=== PATIENT | female | born 1950 | race Caucasian/White ===

== ENCOUNTER 2017-05-30 16:37 | Inpatient (IN) | payer MEDICARE ==
[~2017-05-30] VITALS: Ht 154.9 cm; Wt 96.8 kg
[2017-05-30] MEDS ORDERED: ONDANSETRON 4 MG INJ IV STA (16:48)
[2017-05-30] MEDS ORDERED: SOD CHLORIDE 0.9% 500 ML IV STA (16:48)
[2017-05-30] MEDS ORDERED: ASPIRIN 81 MG TAB PO ONE (17:00)
[2017-05-30 17:05] LABS: BASOPHILS % 0.6 % (0.0-2.0); EOSINOPHILS # 0.1 10^3/ul (0.0-0.5); EOSINOPHILS % 1.4 % (0.0-7.0); HEMATOCRIT 42.3 % (37.0-47.0); LYMPHOCYTES # 1.8 10^3/ul (0.8-2.9); LYMPHOCYTES % 24.5 % (15.0-51.0); MEAN CORPUSCULAR HEMOGLOBIN 26.9 pg (29.0-33.0); MEAN CORPUSCULAR HGB CONC 33.1 g/dl (32.0-37.0); MEAN CORPUSCULAR VOLUME 81.2 fl (82.0-101.0); MEAN PLATELET VOLUME 11.6 fl (7.4-10.4); MONOCYTE # 0.4 10^3/ul (0.3-0.9); MONOCYTES % 5.5 % (0.0-11.0); NEUTROPHIL # 4.9 10^3/ul (1.6-7.5); NEUTROPHILS % 67.7 % (39.0-77.0); PLATELET COUNT 189 10^3/UL (140-415); RED BLOOD COUNT 5.21 10^6/ul (4.20-5.40); WHITE BLOOD COUNT 7.2 10^3/ul (4.8-10.8)
--- NOTE | 2017-05-30 17:19 | ERD ---
ER Documentation Chief Complaint Chief Complaint LUQ AP SUDDEN ONSET 45 MIN VENDING [employer]. N/V. MILD SOB NOTED. HPI 66-year-old woman brought in by EMS from home for left-sided chest pain and discomfort beginning earlier today has been nonexertional nonradiating and associated with nausea, complains of shortness of breath. She denies cough, no fevers or chills, no hemoptysis, no vomiting or diarrhea. Patient denies history of MS. She was transported here by EMS without further complications. ROS All systems reviewed and are negative except as per history of present illness. Medications Home Meds Reported Medications [Complete Bariatric] No Conflict Check, 1 CAP PO BID COMPLETE BARIATRIC MULTIVITAMINS MINERAL SUPPLEMENT 05/30/17 Allergies Allergies: Coded Allergies: No Known Allergy (Unverified , 05/30/17) PMhx/Soc Obesity, hypertension, status post gastric bypass FmHx Family History: No diabetes Physical Exam Vitals Vital Signs Date Time Temp Pulse Resp B/P Pulse Ox O2 Delivery O2 Flow Rate FiO2 05/30/17 16:46 98.3 75 20 166/72 98 Physical Exam GENERAL: Well-developed, appears nauseous, moderate discomfort, afebrile HEENT: Moist mucous membranes, pink conjunctiva, no cervical spine tenderness or step-off deformities, no goiter, no jaundice or icterus, extraocular movements intact without pain. No submandibular induration, and no pharyngeal erythema NEURO: Alert and oriented 3, cranial nerves II through XII intact bilaterally, pupils equal round reactive to light, no focal deficits or facial asymmetry, sensation intact distally Strength 5/5 in upper and lower extremities bilaterally CARDIAC: Regular rate and rhythm, no murmurs rubs or gallops LUNGS: Clear bilaterally no wheezing crackles or stridor ABDOMEN: Soft nontender, no guarding, no rigidity, no rebound, no psoas sign no obturator sign. SKIN: Warm and dry to touch, no abrasions, contusions, or hematomas, no lacerations, no ecchymosis, no target lesions, and without ulcers EXTREMITIES: No clubbing cyanosis or edema, calves are bilaterally symmetrical, no Homans sign, no popliteal cord sign. Distal pulses equal and bilateral PSYCH: Normal affect without agitation or irritability Result Diagram: 05/30/17 1650 05/30/17 1650 Results 24 hrs Laboratory Tests Test 05/30/17 16:50 White Blood Count 7.210^3/ul Red Blood Count 5.2110^6/ul Hemoglobin 14.0g/dl Hematocrit 42.3% Mean Corpuscular Volume 81.2fl Mean Corpuscular Hemoglobin 26.9pg Mean Corpuscular Hemoglobin Concent 33.1g/dl Red Cell Distribution Width 13.0% Platelet Count 62000^3/UL Mean Platelet Volume 11.6fl Neutrophils % 67.7% Lymphocytes % 24.5% Monocytes % 5.5% Eosinophils % 1.4% Basophils % 0.6% Nucleated Red Blood Cells % 0.0/100WBC Neutrophils # 4.910^3/ul Lymphocytes # 1.810^3/ul Monocytes # 0.410^3/ul Eosinophils # 0.110^3/ul Basophils # 0.010^3/ul Nucleated Red Blood Cells # 0.010^3/ul Prothrombin Time 11.0Sec Prothrombin Time Ratio 0.9 INR International Normalized Ratio 0.79 Sodium Level 142mmol/L Potassium Level 4.2mmol/L Chloride Level 101mmol/L Carbon Dioxide Level 24mmol/L Anion Gap 21 Blood Urea Nitrogen 18mg/dl Creatinine 0.74mg/dl Glucose Level 151mg/dl Calcium Level 10.6mg/dl Total Bilirubin 0.3mg/dl Direct Bilirubin 0.00mg/dl Indirect Bilirubin 0.3mg/dl Aspartate Amino Transf (AST/SGOT) 21IU/L Alanine Aminotransferase (ALT/SGPT) 26IU/L Alkaline Phosphatase 107IU/L Troponin I < 0.012ng/ml Total Protein 9.1g/dl Albumin 5.0g/dl Globulin 4.10g/dl Albumin/Globulin Ratio 1.21 Lipase 341U/L Current Medications Medications (Trade) Dose Ordered Sig/Vivi Route PRN Reason Start Time Stop Time Status Last Admin Dose Admin Sodium Chloride (NS) 500 ml @ 500 mls/hr Q1H STAT IV 05/30/17 16:48 05/30/17 17:47 DC 05/30/17 17:02 Ondansetron HCl (Zofran Inj) 4 mg ONCE STAT IV 05/30/17 16:48 05/30/17 16:50 DC 05/30/17 17:02 Aspirin (Aspirin) 324 mg ONCE ONCE PO 05/30/17 17:00 05/30/17 17:01 DC 05/30/17 17:02 Metoclopramide HCl (Reglan) 10 mg ONCE ONCE IV 05/30/17 18:00 05/30/17 18:01 DC 05/30/17 18:00 Alprazolam (Xanax) 0.5 mg ONCE ONCE PO 05/30/17 18:00 05/30/17 18:01 DC 05/30/17 18:00 IV Flush (NS 3 ml) 3 ml PER PROTOCOL IV 05/30/17 19:30 Enoxaparin Sodium (Lovenox) 30 mg DAILY SC 05/31/17 09:00 UNV Procedures/MDM IV line was established patient was placed on cardiac cath rn rhythm strip revealed a sinus rhythm at about 70 bpm with upright P and T waves. Patient was afebrile EKG performed, read by me: 64 bpm, normal sinus rhythm, normal axis, no acute ST segment changes, narrow QRS complex, with good R-wave progression in precordial leads. I administered 500 cc normal saline IV 1, aspirin 324 mg p.o. for cardioprotective measures, Zofran [address] scan of the abdomen and pelvis was performed, given the patient's symptoms. There was no acute inflammatory or infectious pathology noted, vascular structures were unremarkable. Please refer radiologist's dictation for full report.IMPRESSION: 1. No acute abnormality or findings to suggest a source of the patient's symptoms. 2. Small hiatal hernia. Postoperative changes related to prior gastric partitioning. 3. Vascular calcifications consistent with atherosclerosis. For continued nausea patient received metoclopramide 10 mg IV 1 and alprazolam 0.5 mg p.o. 1. CBC was normal, electrolytes unremarkable, liver function tests normal, troponin negative. Departure Diagnosis: Primary Impression: Chest pain Chest pain type: unspecified Qualified Code: R07.9 - Chest pain, unspecified type Additional Impression: Intractable vomiting Vomiting type: unspecified Nausea presence: with nausea Qualified Code: R11.2 - Intractable vomiting with nausea, unspecified vomiting type Condition: ARIES Aquino MD May 30, 2017 17:19
[2017-05-30 17:21] LABS: INR 0.79; PT RATIO 0.9
--- NOTE | 2017-05-30 17:24 | RADRPT ---
PROCEDURE: CT abdomen and pelvis without contrast. CLINICAL INDICATION: Abdominal pain. TECHNIQUE: CT of the abdomen and pelvis was performed without contrast. Coronal and sagittal reform atted images were obtained from the axial source images. Images were reviewed on a high-resolution [employer] workstation. The total exam CTDI equals 22.35 mGy and the total exam DLP equals 1202.79 mGy-cm. DICOM images are available. One or more of the following dose reduction techniques were used: - Automated exposure control. - Adjustment of the mA and/or kV according to patient size. - Use of iterative reconstruction technique. COMPARISON: None available. FINDINGS: Visualized lower thorax: The visualized lung bases are clear. The visualized heart is unremarkable. There is a small hiatal hernia. Hepatobiliary system and spleen: The visualized liver is grossly unremarkable. There is no intra or extrahepatic biliary ductal dilatation. The gallbladder is grossly unremarkable. The spleen is amos sly unremarkable. The pancreas is grossly unremarkable. Adrenal glands and genitourinary system: The adrenal glands are grossly unremarkable. There is no n ephrolithiasis or hydronephrosis. The urinary bladder is grossly unremarkable. The uterus and adnex a are grossly unremarkable. Gastrointestinal system: There is no bowel wall thickening or evidence of obstruction. The appendix is not identified, but there is no focal inflammatory process in the right lower quadrant. There is postoperative change related to prior gastric partitioning. Peritoneum, vascular, and lymphatics: There is no free intraperitoneal air or free fluid. There is no mesenteric or retroperitoneal adenopathy. There are atherosclerotic changes of the aorta, which i s nonaneurysmal. Musculoskeletal system and soft tissues: There is moderate to severe multilevel degenerative enthes opathy. There are no concerning osseous lesions. IMPRESSION: 1. No acute abnormality or findings to suggest a source of the patient's symptoms. 2. Small hiatal hernia. Postoperative changes related to prior gastric partitioning. 3. Vascular calcifications consistent with atherosclerosis. RPTAT: HLBP .Otto Gordon MD, MD Date Time Electronically viewed and signed by .Otto Gordon MD, MD on 05/30/2017 17:24 .P/
[2017-05-30 17:26] LABS: ALANINE AMINOTRANSFERASE 26 IU/L (13-69); ALBUMIN/GLOBULIN RATIO 1.21; ALKALINE PHOSPHATASE 107 IU/L (42-121); ANION GAP 21 (8-16); ASPARTATE AMINO TRANSFERASE 21 IU/L (15-46); BILIRUBIN,INDIRECT 0.3 mg/dl (0-1.1); BILIRUBIN,TOTAL 0.3 mg/dl (0.2-1.3); BLOOD UREA NITROGEN 18 mg/dl (7-20); CALCIUM 10.6 mg/dl (8.4-10.2); CARBON DIOXIDE 24 mmol/L (21-31); CHLORIDE 101 mmol/L (97-110); CREATININE 0.74 mg/dl (0.44-1.00); GLUCOSE 151 mg/dl (70-220); POTASSIUM 4.2 mmol/L (3.5-5.1); SODIUM 142 mmol/L (135-144); TOTAL PROTEIN 9.1 g/dl (6.1-8.1)
[2017-05-30 17:37] LABS: TROPONIN-I < 0.012 ng/ml (0.00-0.12)
[2017-05-30] MEDS ORDERED: [UNRECOGNIZED DRUG - OTHER] PO (17:59)
[2017-05-30] MEDS ORDERED: METOCLOPRAMIDE 10 MG INJ IV ONE (18:00)
[2017-05-30] MEDS ORDERED: ALPRAZOLAM 0.25 MG TAB PO ONE (18:00)
--- NOTE | 2017-05-30 19:03 | HP ---
Date/Time of Note Date/Time of Note DATE: 05/30/17 TIME: 18:57 Assessment/Plan VTE Prophylaxis VTE Prophylaxis Intervention: LMWH Assessment/Plan Chief Complaint/Hosp Course 66 yo female with h/o morbid obesity s/p gastric bypass who presents with episode of nausea, vomiting, followed by chest pain CT A/P shows no acute pathology. Possible this was an ACS, though less likely given negative troponin and nonischemic EKG. Will recheck troponin and monitor overnight. TTE is reasonable to perform. Mostly suspect her nausea/vomiting were related to gastric bypass and chest pain was results of vomiting/ esophageal pain. If feels well and studies normal with discharge in the AM Problems: HPI/ROS Admit Date/Time Admit Date/Time Hx of Present Illness 66 yo female with ho obesity s/p gastric bypass, arthritis who presents with episode of nausea/vomiting then [facility] Pateint in [facility] [place] until around 3 pm. Developed fairly acute onset of nausea. She then vomited. Following this began to feel chest pain. Pain persisted in her chest so she came to the ED. Here underwent CT A/P showing no acute pathology. Currently feels better, back to normal, just systemically "weak" she says. Never has had angina or any similar episodes to this before. Gastric bypass was a year ago, has lost > 100 pounds. PMH/Family/Social Past Surgical History Gastric bypass Social History Smoking Status: Never smoker Exam/Review of Systems Vital Signs Vitals Vital Signs Date Time Temp Pulse Resp B/P Pulse Ox O2 Delivery O2 Flow Rate FiO2 05/30/17 16:46 98.3 75 20 166/72 98 Exam Exam Obese female, resting comfortably in NAD, AOx3 RRR, no m/r/g Lungs clear No pain to palpation of chest wall Abdomen soft nt nd Ext warm without edema Labs Result Diagram: 05/30/17 1650 05/30/17 1650 TAYLOR NORMAN MD May 30, 2017 19:03
[2017-05-30] MEDS ORDERED: NACL 0.9% 3 ML SYG IV SCH (19:30)
[2017-05-30 21:24] VITALS: TEMP 97.8
[2017-05-30 22:04] VITALS: PULSE 77
[2017-05-30 22:20] VITALS: Ht 154.9 cm; Wt 96.8 kg
[2017-05-31] VITALS (8 sets, daily range): BP systolic 98–111; BP diastolic 56–59; PULSE 45–69; RESP 18–19
[2017-05-31 07:39] LABS: BASOPHILS % 0.6 % (0.0-2.0); EOSINOPHILS # 0.1 10^3/ul (0.0-0.5); EOSINOPHILS % 1.1 % (0.0-7.0); HEMATOCRIT 34.4 % (37.0-47.0); HEMOGLOBIN 11.1 g/dl (12.0-16.0); LYMPHOCYTES # 1.3 10^3/ul (0.8-2.9); MEAN CORPUSCULAR HEMOGLOBIN 26.8 pg (29.0-33.0); MEAN CORPUSCULAR HGB CONC 32.3 g/dl (32.0-37.0); MEAN CORPUSCULAR VOLUME 83.1 fl (82.0-101.0); MEAN PLATELET VOLUME 11.7 fl (7.4-10.4); MONOCYTE # 0.4 10^3/ul (0.3-0.9); MONOCYTES % 8.2 % (0.0-11.0); NEUTROPHIL # 2.9 10^3/ul (1.6-7.5); NEUTROPHILS % 61.9 % (39.0-77.0); RED BLOOD COUNT 4.14 10^6/ul (4.20-5.40); RED CELL DISTRIBUTION WIDTH 12.7 % (11.5-14.5); WHITE BLOOD COUNT 4.8 10^3/ul (4.8-10.8)
[2017-05-31 07:43] LABS: PLATELET COUNT 135 10^3/UL (140-415); POSITIVE DIFF @See below
[2017-05-31 07:57] LABS: ALBUMIN 3.5 g/dl (3.3-4.9); ALBUMIN/GLOBULIN RATIO 1.16; BILIRUBIN,INDIRECT 0.5 mg/dl (0-1.1); BILIRUBIN,TOTAL 0.5 mg/dl (0.2-1.3); CALCIUM 9.1 mg/dl (8.4-10.2); CREATININE 0.63 mg/dl (0.44-1.00); POTASSIUM 4.2 mmol/L (3.5-5.1); TOTAL PROTEIN 6.5 g/dl (6.1-8.1)
[2017-05-31] MEDS ORDERED: ENOXAPARIN 30 MG/0.3 ML SYG SC SCH (09:00)
--- NOTE | 2017-05-31 13:58 | PDOCDIS ---
Discharge Instructions DIAGNOSIS Discharge Diagnosis Nausea CONDITION Patient Condition: Good FOLLOW UP/APPOINTMENTS Follow-up Plan Follow up with your primary doctor for further medical care Return to the hospital if you have any concerning symptoms TAYLOR NORMAN MD May 31, 2017 13:58
--- NOTE | 2017-05-31 14:40 | DS ---
Date/Time of Note Date/Time of Note DATE: 05/31/17 TIME: 14:38 Discharge Summary Admission/Discharge Info Admit Date/Time May 30, 2017 at 18:44 Discharge Date/Time Discharge Diagnosis Nausea Patient Condition: Fair Hx of Present Illness 66 yo female with ho obesity s/p gastric bypass, arthritis who presents with episode of nausea/vomiting then CP Pateint in [facility] [place] until around 3 pm. Developed fairly acute onset of nausea. She then vomited. Following this began to feel chest pain. Pain persisted in her chest so she came to the ED. Here underwent CT A/P showing no acute pathology. Currently feels better, back to normal, just systemically "weak" she says. Never has had angina or any similar episodes to this before. Gastric bypass was a year ago, has lost > 100 pounds. Hospital Course 66 yo female with h/o morbid obesity s/p gastric bypass who presents with episode of nausea, vomiting, followed by chest pain Patient monitored overnigth and all symptoms resolved. Serial troponins were negative. She requested discharge home without further workup. She was encouraged to see her PMD for consideration of stress testing. Home Meds Reported Medications [Complete Bariatric] No Conflict Check, 1 CAP PO BID COMPLETE BARIATRIC MULTIVITAMINS MINERAL SUPPLEMENT 05/30/17 Follow-up Plan Follow up with your primary doctor for further medical care Return to the hospital if you have any concerning symptoms Primary Care Provider Not On Staff Doctor Pending Labs Laboratory Tests Test 05/30/17 16:50 05/30/17 19:54 05/31/17 01:36 05/31/17 07:01 White Blood Count 7.210^3/ul (4.8-10.8) 4.810^3/ul (4.8-10.8) Red Blood Count 5.2110^6/ul (4.20-5.40) 4.1410^6/ul (4.20-5.40) Hemoglobin 14.0g/dl (12.0-16.0) 11.1g/dl (12.0-16.0) Hematocrit 42.3% (37.0-47.0) 34.4% (37.0-47.0) Mean Corpuscular Volume 81.2fl (82.0-101.0) 83.1fl (82.0-101.0) Mean Corpuscular Hemoglobin 26.9pg (29.0-33.0) 26.8pg (29.0-33.0) Mean Corpuscular Hemoglobin Concent 33.1g/dl (32.0-37.0) 32.3g/dl (32.0-37.0) Red Cell Distribution Width 13.0% (11.5-14.5) 12.7% (11.5-14.5) Platelet Count 73645^3/UL (140-415) 28886^3/UL (140-415) Mean Platelet Volume 11.6fl (7.4-10.4) 11.7fl (7.4-10.4) Neutrophils % 67.7% (39.0-77.0) 61.9% (39.0-77.0) Lymphocytes % 24.5% (15.0-51.0) 28.0% (15.0-51.0) Monocytes % 5.5% (0.0-11.0) 8.2% (0.0-11.0) Eosinophils % 1.4% (0.0-7.0) 1.1% (0.0-7.0) Basophils % 0.6% (0.0-2.0) 0.6% (0.0-2.0) Nucleated Red Blood Cells % 0.0/100WBC (0.0-0.0) 0.0/100WBC (0.0-0.0) Neutrophils # 4.910^3/ul (1.6-7.5) 2.910^3/ul (1.6-7.5) Lymphocytes # 1.810^3/ul (0.8-2.9) 1.310^3/ul (0.8-2.9) Monocytes # 0.410^3/ul (0.3-0.9) 0.410^3/ul (0.3-0.9) Eosinophils # 0.110^3/ul (0.0-0.5) 0.110^3/ul (0.0-0.5) Basophils # 0.010^3/ul (0.0-0.1) 0.010^3/ul (0.0-0.1) Nucleated Red Blood Cells # 0.010^3/ul (0.0-0.0) 0.010^3/ul (0.0-0.0) Prothrombin Time 11.0Sec (11.9-14.9) Prothrombin Time Ratio 0.9 INR International Normalized Ratio 0.79 Sodium Level 142mmol/L (135-144) 143mmol/L (135-144) Potassium Level 4.2mmol/L (3.5-5.1) 4.2mmol/L (3.5-5.1) Chloride Level 101mmol/L (97-110) 106mmol/L (97-110) Carbon Dioxide Level 24mmol/L (21-31) 28mmol/L (21-31) Anion Gap 21 (8-16) 13 (8-16) Blood Urea Nitrogen 18mg/dl (7-20) 13mg/dl (7-20) Creatinine 0.74mg/dl (0.44-1.00) 0.63mg/dl (0.44-1.00) Glucose Level 151mg/dl (70-220) 86mg/dl (70-220) Calcium Level 10.6mg/dl (8.4-10.2) 9.1mg/dl (8.4-10.2) Total Bilirubin 0.3mg/dl (0.2-1.3) 0.5mg/dl (0.2-1.3) Direct Bilirubin 0.00mg/dl (0.00-0.20) 0.00mg/dl (0.00-0.20) Indirect Bilirubin 0.3mg/dl (0-1.1) 0.5mg/dl (0-1.1) Aspartate Amino Transf (AST/SGOT) 21IU/L (15-46) 19IU/L (15-46) Alanine Aminotransferase (ALT/SGPT) 26IU/L (13-69) 25IU/L (13-69) Alkaline Phosphatase 107IU/L (42-121) 70IU/L (42-121) Troponin I < 0.012ng/ml (0.00-0.12) < 0.012ng/ml (0.00-0.12) < 0.012ng/ml (0.00-0.12) Total Protein 9.1g/dl (6.1-8.1) 6.5g/dl (6.1-8.1) Albumin 5.0g/dl (3.3-4.9) 3.5g/dl (3.3-4.9) Globulin 4.10g/dl (1.3-3.2) 3.00g/dl (1.3-3.2) Albumin/Globulin Ratio 1.21 1.16 Lipase 341U/L (23-300) TAYLOR NORMAN MD May 31, 2017 14:40
== END 2017-05-31 15:17 | disposition home or self-care (01) | DRG 313 ==
LOC: E/R 16:37 → MS4 18:44
PROVIDERS: ADMIT Internal Medicine; ATTEND Internal Medicine
DX: R07.9 Chest pain, unspecified (principal); Z68.41 Body mass index [BMI] 40.0-44.9, adult; R11.2 Nausea with vomiting, unspecified; E66.9 Obesity, unspecified; Z98.84 Bariatric surgery status
CPT/HCPCS: 36415; 74176; 80053; 83690; 84484; 85025; 85610; 93005; 96374; 96375; J1650; J2405; J2765; J7040